=== PATIENT | female | born 1995 | race Asian ===

== ENCOUNTER 2018-10-05 03:46 | Emergency (ER) | payer OTHER ==
[~2018-10-05] VITALS: Ht 160 cm; Wt 52.2 kg
--- NOTE | 2018-10-05 04:15 | NUR ---
ASSISITED MD AT BEDSIDE WITH PELVIC EXAM.
[2018-10-05] MEDS ORDERED: ONDANSETRON HCL/PF 4 MG/2 ML VIAL ONE (04:17)
[2018-10-05] MEDS ORDERED: ONDANSETRON HCL/PF 4 MG/2 ML VIAL IM ONE (04:30)
[2018-10-05] MEDS ORDERED: METRONIDAZOLE 500 MG TABLET PO ONE (04:30)
[2018-10-05] MEDS ORDERED: AZITHROMYCIN 250 MG TABLET PO ONE (04:30)
[2018-10-05] MEDS ORDERED: CEFTRIAXONE 1 G VIAL IM ONE ×2 (04:30→05:00)
[2018-10-05] MEDS ORDERED: METRONIDAZOLE 500 MG TABLET ONE (04:37)
[2018-10-05] MEDS ORDERED: CEFTRIAXONE 500 MG VIAL ONE (04:37)
[2018-10-05] MEDS ORDERED: AZITHROMYCIN 250 MG TABLET ONE (04:37)
[2018-10-05] MEDS ORDERED: LIDOCAINE 1% INJ 50 ML MDV IJ ONE (04:38)
[2018-10-05 05:14] LABS: APPEARANCE,URINE CLEAR (CLEAR); BILIRUBIN,URINE NEGATIVE (NEGATIVE); BLOOD, URINE NEGATIVE Ery/uL (NEGATIVE); COLOR,URINE YELLOW (YELLOW); KETONES,URINE NEGATIVE (NEGATIVE); LEUKOCYTE ESTERASE ,URINE 1+ (NEGATIVE); NITRITE, URINE NEGATIVE (NEGATIVE); PROTEIN,URINE NEGATIVE (NEGATIVE); UGLUCOSE NEGATIVE (NEGATIVE); UROBILINOGEN,URINE 0.2 EU/dL (0.2)
[2018-10-05 05:19] LABS: BACTERIA,URINE M /HPF (None Seen); RBC,URINE 0-2 /HPF (0-2); SQUAMOUS EPITHELIAL CELL,UR Few /HPF (None Seen)
[2018-10-05 05:24] VITALS: BP 114/71
--- NOTE | 2018-10-05 05:24 | NUR ---
Patient discharged to home in stable condition. Written and verbal after care instructions given. Patient verbalizes understanding of instruction. Patient is awake and alert to self, day, and place. Patient ambulatory with a steady gait.
== END 2018-10-05 05:25 | disposition home or self-care (01) ==
LOC: ER 03:49
DX: R11.2 Nausea with vomiting, unspecified (principal); R10.2 Pelvic and perineal pain; F10.10 Alcohol abuse, uncomplicated; Y90.9 Presence of alcohol in blood, level not specified
CPT/HCPCS: 81001; 87070; 87081; 87086; 87110; 87210; 96372 ×2; 99283; J0696; J2405; J3490; 81000-TC